=== PATIENT | male | born 1960 | race Hispanic/Latino ===

== ENCOUNTER 2016-11-16 09:30 | Emergency (ER) | payer MEDICARE ==
[~2016-11-16] VITALS: Ht 177.8 cm; Wt 90.0 kg
[~2016-11-16 09:30] MED LIST: AMLODIPINE5 MG PO; ASPIRIN EC81 MG PO; ATIVAN1 MG PO; ATORVASTATIN CA40 MG PO; HYZAAR1 TA2 PO; Levaquin PO; METOPROL TAR25 MG PO; NU IRON PO; OXYCODONE HCL5 MG PO; POLY GLYCOL3350 MG PO; ULTRAM50 M1 PO; VENTOLIN HFA IN
[2016-11-16 10:08] LABS: HEMATOCRIT 42.2 % (39.0-50.0); IMMATURE GRANULOCYTES 0.4 % (0.0-1.0); MEAN CELL VOLUME 85.4 fL CALC (80.0-100.0); MEAN CORPUSCULAR HGB 28.3 pG CALC (26.0-32.0); MEAN CORPUSCULAR HGB CONC 33.2 g/L CALC (32.0-36.0); NEUT# 15.24 thou/uL (1.82-7.42); RED BLOOD COUNT 4.94 mill/uL (4.70-6.10)
[2016-11-16 10:21] LABS: ALBUMIN 4.1 g/dL (3.2-5.0); ALKALINE PHOSPHATASE 101 u/l (38-126); AMYLASE 92 u/l (30-110); ANION GAP 18 (6-22 (CALC)); BILIRUBIN, TOTAL 1.9 mg/dL (0.0-1.4); BUN 13 mg/dL (9-20); BUN/CREATININE RATIO 14 (12-20 (CALC)); CALCIUM 9.2 mg/dL (8.4-10.2); CARBON DIOXIDE 25 mmol/l (22-30); CHLORIDE 98 mmol/l (95-108); CREATININE 0.9 mg/dL (0.7-1.3); GFR > 60 ML/MIN (>=60 (CALC)); GFR FOR AFR.AMER. > 60 ML/MIN (>=60 (CALC)); GLUCOSE 141 mg/dL (75-110); LIPASE 39 u/l (23-300); POTASSIUM 4.2 mmol/l (3.5-5.1); SGOT/AST 20 u/l (17-59); SGPT/ALT 29 u/l (21-72); SODIUM 137 mmol/l (137-146); TOTAL PROTEIN 8.1 g/dL (6.3-8.2)
[2016-11-16 10:33] LABS: MYOGLOBIN 18 ng/mL (0 - 121)
[2016-11-16 14:53] VITALS: BP 139/85
== END 2016-11-16 16:19 | disposition short-term general hospital (02) ==
LOC: ED 09:30
PROVIDERS: Emergency Medicine
DX: J18.9 Pneumonia, unspecified organism (principal); J90 Pleural effusion, not elsewhere classified; I31.3 Pericardial effusion (noninflammatory); R07.9 Chest pain, unspecified; R94.31 Abnormal electrocardiogram [ECG] [EKG]; R50.9 Fever, unspecified; R10.13 Epigastric pain; I10 Essential (primary) hypertension; Z95.2 Presence of prosthetic heart valve; Z79.82 Long term (current) use of aspirin
CPT/HCPCS: Q9967

== ENCOUNTER 2019-10-13 | Emergency (ER) | payer MEDICARE ==
[~2019-10-13] MED LIST changes: +ALDACTONE25 MG PO; +COZAAR100 MG PO; +LOPRESSOR50 M1 PO; +MULTIVITAMI1 PO; +NAPROSYN500 MG PO; +PROTONIX40 M2 PO
[2019-10-13] MEDS ORDERED: DONEPEZIL5 MG PO (13:16)
[2019-10-13] MEDS ORDERED: MICARDIS80 MG PO (13:17)
[2019-10-13 13:41] LABS: HEMATOCRIT 48.5 % (39.0-50.0); HEMOGLOBIN 16.2 g/dl (14.0-18.0); IMMATURE GRANULOCYTES 0.5 % (0.0-5.0); MEAN CELL VOLUME 89.5 fL CALC (80.0-100.0); MEAN CORPUSCULAR HGB 29.9 pG CALC (26.0-32.0); MEAN CORPUSCULAR HGB CONC 33.4 g/L CALC (32.0-36.0); NEUT# 4.19 thou/uL (1.82-7.42); RED BLOOD COUNT 5.42 mill/uL (4.70-6.10); RED CELL DISTRI WIDTH 13.2 % (11.5-15.5)
[2019-10-13 14:01] LABS: ALBUMIN 4.4 g/dL (3.2-5.0); ALKALINE PHOSPHATASE 87 u/l (38-126); AMYLASE 114 u/l (30-110); ANION GAP 15 (6-22 (CALC)); BILIRUBIN, TOTAL 1.1 mg/dL (0.0-1.4); BUN 15 mg/dL (9-20); BUN/CREATININE RATIO 18 (12-20 (CALC)); CARBON DIOXIDE 25 mmol/l (22-30); CHLORIDE 100 mmol/l (95-108); CREATININE 0.9 mg/dL (0.7-1.3); GFR > 60 ML/MIN (>=60 (CALC)); GFR FOR AFR.AMER. > 60 ML/MIN (>=60 (CALC)); LIPASE 124 u/l (23-300); POTASSIUM 4.1 mmol/l (3.5-5.1); SGOT/AST 26 u/l (17-59); SODIUM 136 mmol/l (137-146); TOTAL PROTEIN 7.7 g/dL (6.3-8.2)
[2019-10-13 14:34] LABS: URINE BILIRUBIN - DIPSTICK NEGATIVE (NEGATIVE); URINE BLOOD DIPSTICK NEGATIVE (NEGATIVE); URINE COLOR YELLOW; URINE GLUCOSE - DIPSTICK NEGATIVE (NEGATIVE); URINE KETONE NEGATIVE (NEGATIVE); URINE LEUK ESTERASE NEGATIVE (NEGATIVE); URINE NITRITE - DIPSTICK NEGATIVE (Negative); URINE PROTEIN - DIPSTICK NEGATIVE (NEG-TRACE); URINE SPECIFIC GRAVITY 1.015; URINE UROBILINOGEN - DIPSTICK 0.2 E.U./dL (0.2)
[2019-10-21] MEDS ORDERED: TRAMADOL HCL50 MG PO (09:13)
[2019-10-21] MEDS ORDERED: MICARDIS40 MG PO (09:13)
[2020-01-24] MEDS ORDERED: NORVASC5 M1 PO (15:34)
[2020-01-24] MEDS ORDERED: ASPIRIN81 MG PO (15:34)
[2020-01-24] MEDS ORDERED: AMOXICILLIN500 MG PO (15:34)
== END 2019-10-13 15:35 | disposition home or self-care (01) ==
PROVIDERS: Emergency Medicine
DX: R10.11 Right upper quadrant pain (principal); M54.9 Dorsalgia, unspecified; I10 Essential (primary) hypertension; I25.10 Atherosclerotic heart disease of native coronary artery without angina pectoris; Z95.2 Presence of prosthetic heart valve

== ENCOUNTER 2020-01-30 06:56 | Day surgery (SDC) | payer MEDICARE ==
[~2020-01-30 06:56] MED LIST changes: +AMOXICILLIN500 MG PO; +ASPIRIN81 MG PO; +DONEPEZIL5 MG PO; +MICARDIS40 MG PO; +MICARDIS80 MG PO; +NORVASC5 M1 PO; +TRAMADOL HCL50 MG PO
[2020-01-30] MEDS ORDERED: PREVACID15 M3 PO (09:31)
[2020-01-30 09:57] VITALS: BP 153/87
== END 2020-01-30 10:10 | disposition home or self-care (01) ==
LOC: ENDO 06:56 → ORM 07:00 → ENDO 08:40
PROVIDERS: ATTEND Surgery
PROC: 0DB68ZX Excision of Stomach, Via Natural or Artificial Opening Endoscopic, Diagnostic (ICD-10-PCS; principal; 2020-01-30)
DX: K25.9 Gastric ulcer, unspecified as acute or chronic, without hemorrhage or perforation (principal); K44.9 Diaphragmatic hernia without obstruction or gangrene; K29.50 Unspecified chronic gastritis without bleeding; I10 Essential (primary) hypertension; Z11.59 Encounter for screening for other viral diseases